=== PATIENT | female | born 2000 | race Hispanic/Latino ===

== ENCOUNTER 2020-11-14 23:29 | Emergency (ER) | payer SELFPAY ==
[~2020-11-14] VITALS: Ht 167.6 cm; Wt 90.7 kg
[2020-11-14 23:36] VITALS: BP 132/78
[2020-11-15] MEDS ORDERED: AZITHROMYCIN 250 MG TABLET PO ONE (00:30)
[2020-11-15] MEDS ORDERED: MAG/ALUM/SIMETH 30 ML UDCUP PO ONE (00:30)
[2020-11-15] MEDS ORDERED: IBUPROFEN 600 MG TABLET PO ONE (00:30)
[2020-11-15] MEDS ORDERED: LIDOCAINE HCL 2% VISCOUS 15 ML UDCUP PO ONE (00:30)
[2020-11-15] MEDS ORDERED: METO-296 PO (02:08)
[2020-11-15] MEDS ORDERED: AZIT250T9 PO (02:08)
[2020-11-15] MEDS ORDERED: ONDA4TAB10 PO (02:08)
[2020-11-15] MEDS ORDERED: BENZ-17 PO (02:08)
[2020-11-15 02:15] VITALS: BP 127/81
[2020-11-15] MEDS ORDERED: ACETAMINOPHEN 500 MG TABLET ONE (02:25)
== END 2020-11-15 02:36 | disposition home or self-care (01) ==
LOC: EDH 23:29
DX: U07.1 COVID-19 (principal); J12.82 Pneumonia due to coronavirus disease 2019; Z79.899 Other long term (current) drug therapy; Z79.1 Long term (current) use of non-steroidal anti-inflammatories (NSAID)
CPT/HCPCS: 71045; 87635; 87804 ×2; 99284; C9803